=== PATIENT | female | born 1995 | race Caucasian/White ===

== ENCOUNTER 2016-10-24 16:39 | Emergency (ER) | payer OTHER ==
--- NOTE | 2016-10-24 19:05 | DIAGNOSTIC IMAGING REPORT ---
PROCEDURE: CT HEAD WITHOUT CONTRAST INDICATION: Severe headache and numbness, initial encounter TECHNIQUE: Noncontrast axial images with sagittal and coronal reformations. COMPARISON: None. FINDINGS: Sulci, ventricular system, and brain parenchyma are normal. No evidence of acute intracranial process. Visualized mastoids and sinuses are clear. IMPRESSION: 1. Negative non-enhanced head CT. 2. Findings discussed with Helen Reyna at 07:02 p.m.[facility] Time
--- NOTE | 2016-10-24 19:05 | DIAGNOSTIC IMAGING REPORT ---
PROCEDURE: CT HEAD WITHOUT CONTRAST INDICATION: Severe headache and numbness, initial encounter TECHNIQUE: Noncontrast axial images with sagittal and coronal reformations. COMPARISON: None. FINDINGS: Sulci, ventricular system, and brain parenchyma are normal. No evidence of acute intracranial process. Visualized mastoids and sinuses are clear. IMPRESSION: 1. Negative non-enhanced head CT. 2. Findings discussed with Helen Reyna at 07:02 p.m.[facility] Time
--- NOTE | 2016-10-24 19:42 | ED ORDER SUMMARY ---
..... Patient: LYDIA THORPE OrderSheet [facility] VisitID: [id number] [place] [address] 20y, F Registration Date/Time: 10/24/2016 ORDER SHEET Weight: 58.9 kg (stated) Allergies: Penicillins, Sulfa Drugs, Latex GENERAL ORDERS: CT Head wo Cont Urgent (18:12 10/24/2016 HBivens A.R.N.P.) (Ack 18:14 TBergley) (18:51 DDean R.N.) MEDICATION ORDERS: Toradol IM 60 mg (NOW) (18:12 10/24/2016 HBivens A.R.N.P.) (Ack 18:12 DDean R.N.) (18:31 DDean R.N.) IV FLUIDS: ORDER SHEET NOTES: [Electronically signed by Gypsy Ho R.N. (20:00 10/24/2016)] [Electronically signed by Helen ReynaR.N.PChen (22:33 10/24/2016)] [Electronically locked/signed by Gypsy Ho R.N. (20:00 10/24/2016)]
--- NOTE | 2016-10-24 19:42 | ED NURSING NOTES ---
Clinical Report - Nurses [facility] [address] [place] [address] 10/24/2016 16:39 Patient: LYDIA THORPE TRIAGE Triage time 17:05 Oct 24 2016. Acuity: LEVEL 4. Chief Complaint: HEADACHE. Alert. No acute distress. ANGELA COMA SCORE: Angela Coma Scale: 15- eyes open spontaneously (4); best verbal response- oriented x 4 (5); best motor response- obeys commands (6). --17:09 Gypsy Ho R.N. 17:05 10/24/16. BP: 120/86. HR: 79. RR: 18. O2 saturation: 100%. Temp: 97.9 F. Pain level now 06/24. --17:09 Gypsy Ho R.N. Weight: 58.9 kg stated. Height/Length: 61 inches Per Patient. BMI: 24.5. --17:05 Gypsy Ho R.N. Medications None. --17:07 Gypsy Ho R.N. Medication/allergy information source: the patient. --17: Gypsy Ho R.N. Allergies Penicillins. (don't know, family history) Sulfa Drugs.(rash) --17:07 Gypsy Ho R.N. Latex. --17:07 Gypsy Ho R.N. History Arrived by private vehicle. Historian: patient. Primary physician (none). ( Headache tonight at work, works at [employer]. Sudden Onset. 06/24. Feels like her right side of face is numb. Took 3 tabs Ibuprofen and has been resting, but no better.). This started just prior to arrival. Patient was last known well (1430 PM). Onset. (1430 PM). 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 Denies current . Has not received seasonal influenza immunization. SURGERY HX: No history of previous surgery. SOCIAL HX: Never smoker. Occasional alcohol use. No drug use. No recent travel. No infectious disease exposure. No known contact with a sick individual. FALL RISK ASSESSMENT: Fall risk assessment completed. No fall risk identified. NUTRITIONAL RISK ASSESSMENT: The nutritional risk assessment revealed no deficiencies. FUNCTIONAL ASSESSMENT: Functional assessment: no impairments noted. LEARNING NEEDS ASSESSMENT: The learning needs assessment revealed no barriers. SKIN INTEGRITY ASSESSMENT: Skin integrity risk assessment completed. No skin integrity risk identified. --17:09 Gypsy Ho R.N. Interventions ID band on patient. To room. --17:09 Gypsy Ho R.N. PHYSICAL ASSESSMENT Ambulatory to room. GENERAL / NEURO / PSYCH: Oriented X 4. Appears in no acute distress. Speech within normal limits. HEENT: No facial asymmetry noted. Pupils equal, round and reactive to light. --17:10 Gypsy Ho R.N. NURSING PROGRESS NOTES Patient gowned. Reassurance given. Lights dimmed. --18:02 Gypsy Ho R.N. 18:31 10/24/2016 Toradol (Ketorolac Tromethamine) IM 60 mg given. Given in the right ventral gluteus. --18:31 Lia Singer R.N. 18:05. Patient gowned. Head of bed elevated. Reassurance given. Lights dimmed. Patient identifiers checked. Call light placed in reach. Side rails up. Bed placed in lowest position. Care transferred and report received. --18:50 Lia Singer R.N. 18:40. Patient walked to [place] with tech. --18:50 Lia Singer R.N. 18:50. Patient walked back to ED from [place] with tech. --18:50 Lia Singer R.N. DISPOSITION / DISCHARGE Condition at departure: unchanged and stable. No learning barriers present. Discharge instructions provided and reviewed with the patient. Reviewed medication(s). Patient verbalized understanding. Written instructions provided in R[place]an. The patient was discharged by the nurse practitioner. She was discharged home and accompanied by family. She left the Emergency Department ambulatory and via private vehicle. Family member driving. --19:59 Gypsy Ho R.N. Departure time: 19:59 Oct 24 2016. --20:00 Gypsy Ho R.N. 19:59 10/24/16. BP: 105/61. HR: 93. RR: 18. O2 saturation: 98%. Pain level now 11/22. --20:00 Gypsy Ho R.N. Locked/Released at 10/24/2016 20:00 by Gypsy Ho R.N.
--- NOTE | 2016-10-24 19:42 | ED CLINICAL REPORT ---
Clinical Report - Physicians/Mid Levels [facility] [address] [place] [address] 10/24/2016 16:39 Patient: LYDIA THORPE Time Seen: 1805; initial patient contact, initial documentation, patient care assumed. Arrived- By private vehicle. Historian- patient. HISTORY OF PRESENT ILLNESS Chief Complaint: HEADACHE. Is still present. This started today. It was abrupt in onset and has been constant. Onset during light activity; at work. It is described as "pain". Located in the region of the right eye and left eye and frontal region. No neck pain. Not located in the facial region. At its maximum, severity described as severe. When seen in the E.D., severity described as severe. Modifying factors: relieved by nothing. Not worsened by anything. No preceding symptoms, photophobia, associated nausea, numbness or weakness. No vomiting. No recent travel. Similar symptoms previously: None. Recent medical care: Not recently seen/assessed. REVIEW OF SYSTEMS No fever, muscle aches, sinus pressure, ear pain or head injury. No chest pain, difficulty breathing or cough. All systems otherwise negative, except as recorded above. PAST HISTORY Negative. SOCIAL HISTORY Never smoker. Occasional alcohol use. No drug use. Is a local resident. FAMILY HISTORY Negative. ADDITIONAL NOTES The nursing notes have been reviewed with agreement regarding the chief complaint, HPI, ROS, PMH and patient medications and allergies. PHYSICAL EXAM Vital Signs: 10/24/2016 17:05 BP: 120/86. HR: 79. RR: 18. O2 saturation: 100%. Temp: 97.9 F. Have been reviewed as normal and appear to be correct. Appearance: Alert. No acute distress. Head: Tenderness present to percussion/palpation of the sinuses: mild right and left frontal tenderness. Eyes: Eyes normal inspection. ENT: Ears normal. Nose abnormal. Pharynx normal. Neck: Normal inspection. Neck supple. CVS: Normal heart rate and rhythm. Heart sounds normal. Pulses normal. Respiratory: No respiratory distress. Breath sounds normal. Abdomen: Soft and nontender. No organomegaly. Back: Normal inspection. Skin: Skin warm and dry. Normal skin color. Normal skin turgor. Extremities: Extremities exhibit normal ROM. No lower extremity edema. Neuro: Oriented X 3. Alert. Mood/affect normal. Speech normal. Cranial nerves normal (as tested). No cerebellar findings. No motor deficit. No sensory deficit. LABS, X-RAYS, AND EKG CT Head: No acute disease. (IMPRESSION: 1. Negative non-enhanced head CT. 2. Findings discussed with Helen Reyna at 07:02 p.m.[facility] Standard Time Electronically Final signed by:Miles Ochoa MD 10/24/2016 7:04:52 PM). The study was interpreted by the radiologist and contemporaneously by me. Interpretation time: 19:20. PROGRESS AND PROCEDURES Patient counseled in person regarding the patient's stable condition, test results and diagnosis. 19:21. Differential Diagnosis: I considered migraine, cluster headache, ischemic stroke, subarachnoid hemorrhage, intracranial bleed, vascular malformation, cerebral aneurysm, vascular dissection, vasculitis, temporal arteritis, encephalitis, brain abscess, subdural empyema, sinusitis, dental etiology, influenza, viral syndrome, analgesic abuse, hypoglycemia and trigeminal neuralgia as a possible cause of headache in this patient. This is a partial list of diagnoses considered. Above considerations are based on history, physical exam and other information. Differential diagnosis was discussed with patient. Disposition: Discharged home in good and improved condition (19:42). Condition: good and stable. CLINICAL IMPRESSION Acute, poorly controlled headache. INSTRUCTIONS Warnings: GENERAL WARNINGS: Return or contact your physician immediately if your condition worsens or changes unexpectedly, if not improving as expected, or if other problems arise. SPECIFICALLY, return if you develop fever, vomiting, numbness, weakness, difficulty thinking, visual disturbances, fainting or extreme fatigue. Prescription Medications: Zofran 4 mg: Take 1 orally every six hours as needed for nausea/vomiting. Dispense ten (10). No refills. Substitution is permissible. Fioricet: Take 1-2 orally every 4 hours as needed for headache. Dispense twenty (20). No refills. Substitution is permissible. Follow-up: Follow up with your doctor in about three days even if well. Call for an appointment. Summary of care provided to patient. Understanding of the discharge instructions verbalized by patient. (Electronically signed by Helen Reyna A.R.N.P. 10/24/2016 22:34)
--- NOTE | 2016-10-24 19:42 | ED ORDER SUMMARY ---
..... Patient: LYDIA THORPE OrderSheet [facility] VisitID: [id number] [place] [address] 20y, F Registration Date/Time: 10/24/2016 ORDER SHEET Weight: 58.9 kg (stated) Allergies: Penicillins, Sulfa Drugs, Latex GENERAL ORDERS: CT Head wo Cont Urgent (18:12 10/24/2016 HBivens A.R.N.P.) (Ack 18:14 TBergley) (18:51 DDean R.N.) MEDICATION ORDERS: Toradol IM 60 mg (NOW) (18:12 10/24/2016 HBivens A.R.N.P.) (Ack 18:12 DDean R.N.) (18:31 DDean R.N.) IV FLUIDS: ORDER SHEET NOTES: [Electronically signed by Gypsy Ho R.N. (20:00 10/24/2016)] [Electronically signed by Helen ReynaR.N.PChen (22:33 10/24/2016)] [Electronically locked/signed by Gypsy Ho R.N. (20:00 10/24/2016)]
--- NOTE | 2016-10-24 19:42 | ED NURSING NOTES ---
Clinical Report - Nurses [facility] [address] [place] [address] 10/24/2016 16:39 Patient: LYDIA THORPE TRIAGE Triage time 17:05 Oct 24 2016. Acuity: LEVEL 4. Chief Complaint: HEADACHE. Alert. No acute distress. ANGELA COMA SCORE: Angela Coma Scale: 15- eyes open spontaneously (4); best verbal response- oriented x 4 (5); best motor response- obeys commands (6). --17:09 Gypsy Ho R.N. 17:05 10/24/16. BP: 120/86. HR: 79. RR: 18. O2 saturation: 100%. Temp: 97.9 F. Pain level now 06/24. --17:09 Gypsy Ho R.N. Weight: 58.9 kg stated. Height/Length: 61 inches Per Patient. BMI: 24.5. --17:05 Gypsy Ho R.N. Medications None. --17:07 Gypsy Ho R.N. Medication/allergy information source: the patient. --17: Gypsy oH R.N. Allergies Penicillins. (don't know, family history) Sulfa Drugs.(rash) --17:07 Gypsy Ho R.N. Latex. --17:07 Gypsy Ho R.N. History Arrived by private vehicle. Historian: patient. Primary physician (none). ( Headache tonight at work, works at [employer]. Sudden Onset. 06/24. Feels like her right side of face is numb. Took 3 tabs Ibuprofen and has been resting, but no better.). This started just prior to arrival. Patient was last known well (1430 PM). Onset. (1430 PM). 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 Denies current . Has not received seasonal influenza immunization. SURGERY HX: No history of previous surgery. SOCIAL HX: Never smoker. Occasional alcohol use. No drug use. No recent travel. No infectious disease exposure. No known contact with a sick individual. FALL RISK ASSESSMENT: Fall risk assessment completed. No fall risk identified. NUTRITIONAL RISK ASSESSMENT: The nutritional risk assessment revealed no deficiencies. FUNCTIONAL ASSESSMENT: Functional assessment: no impairments noted. LEARNING NEEDS ASSESSMENT: The learning needs assessment revealed no barriers. SKIN INTEGRITY ASSESSMENT: Skin integrity risk assessment completed. No skin integrity risk identified. --17:09 Gypsy Ho R.N. Interventions ID band on patient. To room. --17:09 Gypsy Ho R.N. PHYSICAL ASSESSMENT Ambulatory to room. GENERAL / NEURO / PSYCH: Oriented X 4. Appears in no acute distress. Speech within normal limits. HEENT: No facial asymmetry noted. Pupils equal, round and reactive to light. --17:10 Gypsy Ho R.N. NURSING PROGRESS NOTES Patient gowned. Reassurance given. Lights dimmed. --18:02 Gypsy Ho R.N. 18:31 10/24/2016 Toradol (Ketorolac Tromethamine) IM 60 mg given. Given in the right ventral gluteus. --18:31 Lia Singer R.N. 18:05. Patient gowned. Head of bed elevated. Reassurance given. Lights dimmed. Patient identifiers checked. Call light placed in reach. Side rails up. Bed placed in lowest position. Care transferred and report received. --18:50 Lia Singer R.N. 18:40. Patient walked to [place] with tech. --18:50 Lia Singer R.N. 18:50. Patient walked back to [place] with tech. --18:50 Lia Singer R.N. DISPOSITION / DISCHARGE Condition at departure: unchanged and stable. No learning barriers present. Discharge instructions provided and reviewed with the patient. Reviewed medication(s). Patient verbalized understanding. Written instructions provided in [place]an. The patient was discharged by the nurse practitioner. She was discharged home and accompanied by family. She left the Emergency Department ambulatory and via private vehicle. Family member driving. --19:59 Gypsy Ho R.N. Departure time: 19:59 Oct 24 2016. --20:00 Gypsy Ho R.N. 19:59 10/24/16. BP: 105/61. HR: 93. RR: 18. O2 saturation: 98%. Pain level now 11/22. --20:00 Gypsy Ho R.N. Locked/Released at 10/24/2016 20:00 by Gypsy Ho R.N.
--- NOTE | 2016-10-24 22:34 | ED MED RECONCILIATION SUMMARY ---
Patient: LYDIA THORPE Medication Reconciliation Report [facility] VisitID: [id number] [place] [address] 20y, F Registration Date/Time: 10/24/2016 Weight: 58.9 kg Height/Length: 61 in. BMI: 24.5 ALLERGIES: Latex, Penicillins, Sulfa Drugs The patient's Home Medications are listed below: NONE. The source(s) of the original Home Medication information: patient The following Medications were given to the patient in the Emergency Department: Toradol [IM] IM 60 mg, administered: 10/24/2016 6:31:00 PM The following Medications were prescribed to the patient: Zofran 4 mg: Take 1 orally every six hours as needed for nausea/vomiting. Dispense ten (10). No refills. Substitution is permissible. -- Helen Reyna, A.R.N.P. Fioricet: Take 1-2 orally every 4 hours as needed for headache. Dispense twenty (20). No refills. Substitution is permissible. -- Helen Reyna, A.R.N.P.
--- NOTE | 2016-10-24 22:34 | ED DISCHARGE INSTRUCTIONS ---
Patient: LYDIA THORPE General Instructions [facility] VisitID: [id number] [place] [address] 20y, F Registration Date/Time: 10/24/2016 Acute, poorly controlled headache. INSTRUCTIONS Warnings: GENERAL WARNINGS: Return or contact your physician immediately if your condition worsens or changes unexpectedly, if not improving as expected, or if other problems arise. SPECIFICALLY, return if you develop fever, vomiting, numbness, weakness, difficulty thinking, visual disturbances, fainting or extreme fatigue. Prescription Medications: Zofran 4 mg: Take 1 orally every six hours as needed for nausea/vomiting. Dispense ten (10). No refills. Substitution is permissible. Fioricet: Take 1-2 orally every 4 hours as needed for headache. Dispense twenty (20). No refills. Substitution is permissible. Follow-up: Follow up with your doctor in about three days even if well. Call for an appointment. Summary of care provided to patient. Understanding of the discharge instructions verbalized by patient. ADDITIONAL INFORMATION Headache [Unspecified] The cause of your headache today is not clear, but it does not appear to be the sign of any serious illness. Under stress, some people tense the muscles of their shoulder, neck and scalp without knowing it. If this condition lasts long enough, a TENSION HEADACHE can occur. A MIGRAINE HEADACHE is caused by changes in blood flow to the brain. A migraine attack may be triggered by emotional stress, hormone changes during the menstrual cycle, oral contraceptives, alcohol use, certain foods containing tyramine, eye strain, weather changes, missing meals, lack of sleep or oversleeping. Other causes of headache include a viral illness with high fever, head injury with concussion, sinus, ear or throat infection, dental pain and TMJ (jaw joint) pain. More serious but less common causes of headache include stroke, brain hemorrhage, brain tumor, meningitis and encephalitis. Home Care: If you were given pain medicine for this headache, do not drive yourself home. Arrange for a ride, instead. When you get home, try to sleep. You should feel much better when you wake up. Apply heat to the back of your neck to relieve neck muscle spasm. Migraine headaches may respond best to an ice pack on the forehead or at the base of the skull. If you are having nausea or vomiting, follow a light diet until your headache is relieved. If you have a migraine type headache, use sunglasses when in the daylight or around bright indoor lighting until symptoms improve. Bright glaring light can worsen this kind of headache. Follow Up with your doctor if the headache is not better within the next 24 hours. If you have frequent headaches you should discuss a treatment plan with your primary care doctor. By being aware of the earliest signs of headache, and starting treatment right away, you may be able to stop the pain yourself. Get Prompt Medical Attention if any of the following occur: Worsening of your head pain or no improvement within 24 hours Repeated vomiting (unable to keep liquids down) Fever of 100.4F (38C) or higher, or as directed by your healthcare provider Stiff neck Extreme drowsiness, confusion or fainting Dizziness, vertigo (dizziness with spinning sensation) Weakness of an arm or leg or one side of the face Difficulty with speech or vision Ondansetron Oral disintegrating tablet What is this medicine? ONDANSETRON (on KARMA se naima) is used to treat nausea and vomiting caused by chemotherapy. It is also used to prevent or treat nausea and vomiting after surgery. How should I use this medicine? These tablets are made to dissolve in the mouth. Do not try to push the tablet through the foil backing. With dry hands, peel away the foil backing and gently remove the tablet. Place the tablet in the mouth and allow it to dissolve, then swallow. While you may take these tablets with water, it is not necessary to do so. Talk to your insight director regarding the use of this medicine in children. Special care may be needed. What side effects may I notice from receiving this medicine? Side effects that you should report to your doctor or health intensive care medicine specialist as soon as possible: allergic reactions like skin rash, itching or hives, swelling of the face, lips, or tongue breathing problems dizziness fast or irregular heartbeat feeling faint or lightheaded, falls fever and chills swelling of the hands and feet tightness in the chest Side effects that usually do not require medical attention (report to your doctor or health intensive care medicine specialist if they continue or are bothersome): constipation or diarrhea headache What may interact with this medicine? Do not take this medicine with any of the following medications: -apomorphine -cisapride -dofetilide -dronedarone -pimozide -thioridazine -ziprasidone This medicine may also interact with the following medications: -carbamazepine -phenytoin -rifampicin -tramadol -other medicines that prolong the QT interval (cause an abnormal heart rhythm) What if I miss a dose? If you miss a dose, take it as soon as you can. If it is almost time for your next dose, take only that dose. Do not take double or extra doses. Where should I keep my medicine? Keep out of the reach of children. Store between 2 and 30 degrees C (36 and 86 degrees F). Throw away any unused medicine after the expiration date. What should I tell my health care provider before I take this medicine? They need to know if you have any of these conditions: heart disease history of irregular heartbeat liver disease low levels of magnesium or potassium in the blood an unusual or allergic reaction to ondansetron, granisetron, other medicines, foods, dyes, or preservatives or trying to get breast-feeding What should I watch for while using this medicine? Check with your doctor or health intensive care medicine specialist as soon as you can if you have any sign of an allergic reaction. Butalbital, Acetaminophen, Caffeine Oral tablet What is this medicine? ACETAMINOPHEN; BUTALBITAL; CAFFEINE (a set a ROBE mark fen; byoo MERCEDEZ bi mercedez; KAF een) is a pain reliever. It is used to treat tension headaches. How should I use this medicine? Take this medicine by mouth with a full glass of water. Follow the directions on the prescription label. If the medicine upsets your stomach, take the medicine with food or milk. Do not take more than you are told to take. Talk to your insight director regarding the use of this medicine in children. Special care may be needed. What side effects may I notice from receiving this medicine? Side effects that you should report to your doctor or health intensive care medicine specialist as soon as possible: allergic reactions like skin rash, itching or hives, swelling of the face, lips, or tongue breathing problems confusion feeling faint or lightheaded, falls redness, blistering, peeling or loosening of the skin, including inside the mouth seizure stomach pain yellowing of the eyes or skin Side effects that usually do not require medical attention (report to your doctor or health intensive care medicine specialist if they continue or are bothersome): constipation nausea, vomiting What may interact with this medicine? alcohol or medicines that contain alcohol antidepressants, especially MAOIs like isocarboxazid, phenelzine, tranylcypromine, and selegiline antihistamines benzodiazepines carbamazepine isoniazid medicines for pain like pentazocine, buprenorphine, butorphanol, nalbuphine, tramadol, and propoxyphene muscle relaxants naltrexone phenobarbital, phenytoin, and fosphenytoin phenothiazines like perphenazine, thioridazine, chlorpromazine, mesoridazine, fluphenazine, prochlorperazine, promazine, and trifluoperazine voriconazole What if I miss a dose? If you miss a dose, take it as soon as you can. If it is almost time for your next dose, take only that dose. Do not take double or extra doses. Where should I keep my medicine? Keep out of the reach of children. This medicine can be abused. Keep your medicine in a safe place to protect it from theft. Do not share this medicine with anyone. Selling or giving away this medicine is dangerous and against the law. Store at room temperature between 15 and 30 degrees C (59 and 86 degrees F). Keep container tightly closed. Protect from light. Throw away any unused medicine after the expiration date. What should I tell my health care provider before I take this medicine? They need to know if you have any of these conditions: drink more than 3 alcohol-containing drinks per day drug abuse or addiction heart or circulation problems kidney disease or problems going to the bathroom liver disease lung disease, asthma, or breathing problems porphyria an unusual or allergic reaction to acetaminophen, butalbital or other barbiturates, caffeine, other medicines, foods, dyes, or preservatives or trying to get breast-feeding What should I watch for while using this medicine? Tell your doctor or health intensive care medicine specialist if your pain does not go away, if it gets worse, or if you have new or a different type of pain. You may develop tolerance to the medicine. Tolerance means that you will need a higher dose of the medicine for pain relief. Tolerance is normal and is expected if you take the medicine for a long time. Do not suddenly stop taking your medicine because you may develop a severe reaction. Your body becomes used to the medicine. This does NOT mean you are addicted. Addiction is a behavior related to getting and using a drug for a non-medical reason. If you have pain, you have a medical reason to take pain medicine. Your doctor will tell you how much medicine to take. If your doctor wants you to stop the medicine, the dose will be slowly lowered over time to avoid any side effects. You may get drowsy or dizzy when you first start taking the medicine or change doses. Do not drive, use machinery, or do anything that may be dangerous until you know how the medicine affects you. Stand or sit up slowly. Do not take other medicines that contain acetaminophen with this medicine. Always read labels carefully. If you have questions, ask your doctor or pharmacist. If you take too much acetaminophen get medical help right away. Too much acetaminophen can be very dangerous and cause liver damage. Even if you do not have symptoms, it is important to get help right away. You have been given the following additional information: Headache, Unspecified Ondansetron Oral disintegrating tablet Butalbital, Acetaminophen, Caffeine Oral tablet (Electronically signed by Helen Reyna A.R.N.P. 10/24/2016 22:34)
--- NOTE | 2016-10-24 22:34 | ED MED RECONCILIATION SUMMARY ---
Patient: LYDIA THORPE Medication Reconciliation Report [facility] VisitID: [id number] [place] [address] 20y, F Registration Date/Time: 10/24/2016 Weight: 58.9 kg Height/Length: 61 in. BMI: 24.5 ALLERGIES: Latex, Penicillins, Sulfa Drugs The patient's Home Medications are listed below: NONE. The source(s) of the original Home Medication information: patient The following Medications were given to the patient in the Emergency Department: Toradol [IM] IM 60 mg, administered: 10/24/2016 6:31:00 PM The following Medications were prescribed to the patient: Zofran 4 mg: Take 1 orally every six hours as needed for nausea/vomiting. Dispense ten (10). No refills. Substitution is permissible. -- Helen Reyna, A.R.N.P. Fioricet: Take 1-2 orally every 4 hours as needed for headache. Dispense twenty (20). No refills. Substitution is permissible. -- Helen Reyna, A.R.N.P.
--- NOTE | 2016-10-24 22:34 | ED MAR SUMMARY ---
..... Medication Administration Record [facility] [address] [place] [address] Patient: LYDIA THORPE Visit ID: [id number] 20y, F Weight: 58.9 kg Height/Length: 61 in BMI: 24.5 ALLERGIES: Latex, Penicillins, Sulfa Drugs Given 18:31 10/24/2016 Enmanuel, Yajaira Fitzgerald. Medication Administered: TORADOL [IM] (KETOROLAC TROMETHAMINE), Dose: 60 mg IM. Medication Ordered: Toradol IM 60 mg (NOW).
--- NOTE | 2016-10-24 22:34 | ED MAR SUMMARY ---
..... Medication Administration Record [facility] [address] [place] [address] Patient: LYDIA THORPE Visit ID: [id number] 20y, F Weight: 58.9 kg Height/Length: 61 in BMI: 24.5 ALLERGIES: Latex, Penicillins, Sulfa Drugs Given 18:31 10/24/2016 Enmanuel, Yajaira Fitzgerald. Medication Administered: TORADOL [IM] (KETOROLAC TROMETHAMINE), Dose: 60 mg IM. Medication Ordered: Toradol IM 60 mg (NOW).
== END 2016-10-24 20:00 | disposition home or self-care (01) ==
LOC: ED SRH 16:39
DX: G44.59 Other complicated headache syndrome (principal)